=== PATIENT | male | born 1935 | race Caucasian/White ===

== ENCOUNTER 2020-11-07 03:10 | Inpatient (IN) ==
[2020-11-07] MEDS ORDERED: ONDANSETRON 4 MG/2 ML VIAL IV STA (03:35)
[2020-11-07] MEDS ORDERED: HYDROmorphone 2 MG/1 ML VIAL IV STA (03:35)
[2020-11-07] MEDS ORDERED: DILTIAZEM 50 MG/10 ML VIAL IV STA (03:35)
[2020-11-07] MEDS ORDERED: SODIUM CHLORIDE 0.9% 500 ML IV STA (03:35)
[2020-11-07] MEDS: DILTIAZEM INJ 100 MG in SODIUM CHLORIDE 0.9% 100 ML IV SCH (04:05)
[2020-11-07 04:47] LABS: Basophils % 0.3 % (0.0-0.8); Eosinophils # 0.1 10*3/uL (0.0-0.87); Eosinophils % 0.6 % (0.00-10.9); Hematocrit 31.4 VOL% (42.0-52.0); Hemoglobin 10.4 GM/DL (14.0-18.0); Immature Granulocytes % 0.6 %; Immature Granulocytes Absolute 0.08 #; Lymphocytes # 0.8 10*3/uL (1.4-4.0); Lymphocytes % 5.7 % (21.2-54.2); Mean Corpuscular HGB Conc 33.1 GM/DL (32-36); Mean Corpuscular Volume 94.9 FL (87-102); Mean Platelet Volume 10.2 FL (9.6-12.0); Monocytes % 6.6 % (1.7-12.7); Neutrophils % 86.2 % (38.7-73.9); Platelet Count 252 T/CUMM (130-400); Red Blood Count 3.31 MC/CUMM (3.8-5.5); Red Cell Distribution Width 14.8 % (9.3-17.3)
[2020-11-07 04:54] LABS: PT Patient Result 11.5 SECS (10.5-12.0)
[2020-11-07 05:26] LABS: Alanine Aminotransferase 17 U/L (16-61); Albumin 3.8 G/DL (3.4-5.0); Alkaline Phosphatase 178 U/L (45-117); Aspartate Amino Transferase 24 U/L (0-37); Blood Urea Nitrogen 16 MG/DL (7-18); Calcium 9.3 MG/DL (8.5-10.1); Carbon Dioxide 25 MMOL/L (21-32); Estimated Glom Filtration Rate 84 ML/MIN; Glucose 138 MG/DL (74-106); Osmolality,Calculated 268.4 MOS/KG (273-304); Potassium 3.7 MMOL/L (3.5-5.1); Sodium 133 MMOL/L (136-145); Total Protein 6.6 G/DL (6.4-8.2)
[2020-11-07] MEDS ORDERED: GLUCAGON 1 MG VIAL IM PRN (05:34)
[2020-11-07] MEDS ORDERED: DEXTROSE 50% 25 GM/50 ML VIAL IV PRN (05:34)
[2020-11-07] MEDS ORDERED: MORPHINE 2 MG/1 ML SYRINGE IV PRN ×3 (05:34→12:12)
[2020-11-07] MEDS ORDERED: ONDANSETRON 4 MG/2 ML VIAL IV PRN (05:34)
[2020-11-07] MEDS ORDERED: SODIUM CHLORIDE 0.9% 1,000 ML IV SCH (06:00)
[2020-11-07 07:29] LABS: Bilirubin,Urine Negative (Negative); Blood, Urine Negative (Negative); Glucose,Urine (UA) Negative (Negative); Hyaline Casts,Urine 1 /LPF (0-3); Ketones,Urine 5 mg/dL (Negative); Mucus,Urine Occasional /LPF (Occasional); Nitrite,Urine Negative (Negative); Protein,Urine 30 MG/DL; RBC,Urine 2 /HPF (0-4); Urine Appearance CLEAR (Clear); Urine Color Yellow (Yellow)
[2020-11-07] MEDS ORDERED: ceFAZolin 2,000 MG/50 ML DUPLEX IV ONE (08:00)
[2020-11-07] MEDS: METOPROLOL TARTRATE 25 MG TABLET PO SCH ×2 (08:49→20:40)
[2020-11-07] MEDS: ENOXAPARIN 40 MG/0.4 ML SYRINGE SUBCUT SCH (08:50)
[2020-11-07] MEDS ORDERED: fentaNYL 100 MCG/2 ML VIAL ONE (10:08)
[2020-11-07] MEDS ORDERED: BUPIVACAINE MPF 0.25% 30 ML VIAL ONE (10:08)
[2020-11-07] MEDS ORDERED: DEXAMETHASONE 4 MG/1 ML VIAL ONE (10:08)
[2020-11-07] MEDS ORDERED: BACITRACIN OINT 0.9 GM PACK TOP ONE (10:18)
[2020-11-07] MEDS ORDERED: SEVOFLURANE 1 UNIT/15 MINUTE INH ONE ×5 (10:19→11:54)
[2020-11-07] MEDS ORDERED: LIDOCAINE 2% 5 ML VIAL ONE (10:19)
[2020-11-07] MEDS ORDERED: propofoL 200 MG/20 ML VIAL IV ONE (10:19)
[2020-11-07] MEDS ORDERED: LACTATED RINGERS 1,000 ML IV SCH (11:00)
[2020-11-07] MEDS ORDERED: DILTIAZEM 50 MG/10 ML VIAL IV ONE (11:02)
[2020-11-07] MEDS ORDERED: ACETAMINOPHEN INJ 1,000 MG/100 ML VIAL IV ONE (11:53)
[2020-11-07] MEDS ORDERED: PHENYLEPHRINE 1 MG/10 ML SYRINGE IV ONE (11:53)
[2020-11-07] MEDS ORDERED: MAGNESIUM HYDROXIDE SUSP 30 ML UDCUP PO PRN (12:12)
[2020-11-07] MEDS: LACTATED RINGERS 1,000 ML IV SCH (14:12)
[2020-11-07] MEDS: DIGOXIN 0.125 MG TABLET PO SCH (14:12)
[2020-11-07] MEDS: DOCUSATE SODIUM 100 MG CAPSULE PO SCH (20:40)
[2020-11-08] MEDS: LACTATED RINGERS 1,000 ML IV SCH (01:04)
[2020-11-08] MEDS: DILTIAZEM INJ 100 MG in SODIUM CHLORIDE 0.9% 100 ML IV SCH (04:47)
[2020-11-08 07:11] LABS: Basophils % 0.3 % (0.0-0.8); Hematocrit 23.9 VOL% (42.0-52.0); Hemoglobin 7.9 GM/DL (14.0-18.0); Immature Granulocytes % 0.4 %; Immature Granulocytes Absolute 0.03 #; Lymphocytes # 0.9 10*3/uL (1.4-4.0); Lymphocytes % 11.3 % (21.2-54.2); Mean Corpuscular HGB Conc 33.1 GM/DL (32-36); Mean Corpuscular Volume 94.5 FL (87-102); Mean Platelet Volume 10.2 FL (9.6-12.0); Monocytes % 9.9 % (1.7-12.7); Neutrophils % 78.1 % (38.7-73.9); Platelet Count 190 T/CUMM (130-400); Red Blood Count 2.53 MC/CUMM (3.8-5.5); Red Cell Distribution Width 14.8 % (9.3-17.3); White Blood Count 7.6 T/CUMM (4-12)
[2020-11-08] MEDS ORDERED: SODIUM CHLORIDE 0.9% 1,000 ML IV PRN (07:15)
[2020-11-08] MEDS ORDERED: FUROSEMIDE 40 MG/4 ML VIAL IV PRN (07:15)
[2020-11-08 07:33] LABS: Calcium 8.5 MG/DL (8.5-10.1); Osmolality,Calculated 271.1 MOS/KG (273-304); Potassium 4.5 MMOL/L (3.5-5.1)
[2020-11-08] MEDS: METOPROLOL TARTRATE 25 MG TABLET PO SCH ×2 (08:02→20:32)
[2020-11-08] MEDS: DOCUSATE SODIUM 100 MG CAPSULE PO SCH ×2 (08:02→20:32)
[2020-11-08] MEDS: ENOXAPARIN 40 MG/0.4 ML SYRINGE SUBCUT SCH (08:03)
[2020-11-08] MEDS: DIGOXIN 0.125 MG TABLET PO SCH (12:42)
[2020-11-08] MEDS ORDERED: TUBERCULIN SKIN TEST 0.1 ML SYRINGE INTRADERM ONE (13:31)
[2020-11-08 16:13] LABS: Hematocrit 29.8 VOL% (42.0-52.0); Hemoglobin 9.7 GM/DL (14.0-18.0)
[2020-11-09] MEDS: DILTIAZEM INJ 100 MG in SODIUM CHLORIDE 0.9% 100 ML IV SCH (04:04)
[2020-11-09 05:23] LABS: Basophils % 0.3 % (0.0-0.8); Eosinophils # 0.1 10*3/uL (0.0-0.87); Eosinophils % 0.8 % (0.00-10.9); Hemoglobin 9.5 GM/DL (14.0-18.0); Immature Granulocytes % 0.5 %; Immature Granulocytes Absolute 0.03 #; Lymphocytes # 1.3 10*3/uL (1.4-4.0); Mean Corpuscular HGB Conc 31.7 GM/DL (32-36); Mean Corpuscular Volume 95.5 FL (87-102); Mean Platelet Volume 9.9 FL (9.6-12.0); Monocytes % 13.5 % (1.7-12.7); Neutrophils % 64.9 % (38.7-73.9); Platelet Count 178 T/CUMM (130-400); Red Blood Count 3.14 MC/CUMM (3.8-5.5); White Blood Count 6.6 T/CUMM (4-12)
[2020-11-09 05:46] LABS: Calcium 8.8 MG/DL (8.5-10.1); Osmolality,Calculated 275.7 MOS/KG (273-304); Potassium 4.3 MMOL/L (3.5-5.1)
[2020-11-09] MEDS: PANTOPRAZOLE 40 MG TABLET PO SCH (09:26)
[2020-11-09] MEDS: DOCUSATE SODIUM 100 MG CAPSULE PO SCH ×2 (09:26→20:53)
[2020-11-09] MEDS: ASPIRIN EC 81 MG TABLET PO SCH (09:26)
[2020-11-09] MEDS: METOPROLOL TARTRATE 25 MG TABLET PO SCH ×2 (09:26→20:53)
[2020-11-09] MEDS: ENOXAPARIN 40 MG/0.4 ML SYRINGE SUBCUT SCH (09:27)
[2020-11-09] MEDS: DIGOXIN 0.125 MG TABLET PO SCH (13:28)
[2020-11-09] MEDS: LUBIPROSTONE 8 MCG CAPSULE PO SCH (20:53)
[2020-11-09] MEDS: ALVIMOPAN 12 MG CAPSULE PO SCH (20:53)
[2020-11-10 06:05] LABS: Basophils # 0.1 10*3/uL (0.0-0.2); Basophils % 0.8 % (0.0-0.8); Eosinophils # 0.5 10*3/uL (0.0-0.87); Eosinophils % 7.9 % (0.00-10.9); Hemoglobin 9.3 GM/DL (14.0-18.0); Immature Granulocytes % 0.6 %; Immature Granulocytes Absolute 0.04 #; Lymphocytes # 1.4 10*3/uL (1.4-4.0); Lymphocytes % 21.6 % (21.2-54.2); Mean Corpuscular HGB Conc 32.1 GM/DL (32-36); Mean Corpuscular Volume 94.8 FL (87-102); Mean Platelet Volume 9.9 FL (9.6-12.0); Neutrophils % 57.1 % (38.7-73.9); Platelet Count 201 T/CUMM (130-400); Red Blood Count 3.06 MC/CUMM (3.8-5.5); Red Cell Distribution Width 14.9 % (9.3-17.3); White Blood Count 6.3 T/CUMM (4-12)
[2020-11-10 06:28] LABS: Calcium 8.4 MG/DL (8.5-10.1); Osmolality,Calculated 273.8 MOS/KG (273-304); Potassium 3.9 MMOL/L (3.5-5.1)
[2020-11-10] MEDS: LINACLOTIDE 145 MCG CAPSULE PO SCH (08:57)
[2020-11-10] MEDS: LUBIPROSTONE 8 MCG CAPSULE PO SCH ×2 (08:58→21:13)
[2020-11-10] MEDS: ALVIMOPAN 12 MG CAPSULE PO SCH ×2 (08:58→21:15)
[2020-11-10] MEDS: DOCUSATE SODIUM 100 MG CAPSULE PO SCH ×2 (08:58→21:13)
[2020-11-10] MEDS: ASPIRIN EC 81 MG TABLET PO SCH (08:58)
[2020-11-10] MEDS: METOPROLOL TARTRATE 25 MG TABLET PO SCH ×2 (08:59→21:13)
[2020-11-10] MEDS: ENOXAPARIN 40 MG/0.4 ML SYRINGE SUBCUT SCH (09:00)
[2020-11-10] MEDS: PANTOPRAZOLE 40 MG TABLET PO SCH (09:01)
[2020-11-10] MEDS: DIGOXIN 0.125 MG TABLET PO SCH (13:17)
[2020-11-10] MEDS: LACTULOSE 20 GM/30 ML UDCUP PO SCH (21:18)
[2020-11-11 05:22] LABS: Basophils # 0.1 10*3/uL (0.0-0.2); Eosinophils # 0.9 10*3/uL (0.0-0.87); Eosinophils % 14.2 % (0.00-10.9); Hematocrit 29.9 VOL% (42.0-52.0); Hemoglobin 9.7 GM/DL (14.0-18.0); Immature Granulocytes % 0.8 %; Immature Granulocytes Absolute 0.05 #; Lymphocytes # 1.2 10*3/uL (1.4-4.0); Lymphocytes % 18.7 % (21.2-54.2); Mean Corpuscular HGB Conc 32.4 GM/DL (32-36); Mean Corpuscular Volume 95.8 FL (87-102); Mean Platelet Volume 10.9 FL (9.6-12.0); Monocytes % 11.5 % (1.7-12.7); Neutrophils % 53.8 % (38.7-73.9); Platelet Count 182 T/CUMM (130-400); Red Blood Count 3.12 MC/CUMM (3.8-5.5); Red Cell Distribution Width 14.9 % (9.3-17.3); White Blood Count 6.3 T/CUMM (4-12)
[2020-11-11 06:08] LABS: Calcium 8.7 MG/DL (8.5-10.1); Osmolality,Calculated 267.2 MOS/KG (273-304); Potassium 4.3 MMOL/L (3.5-5.1)
[2020-11-11 06:11] LABS: Eosinophils 17 % (0-10); Lymphocytes 21 % (20-55); Platelet Estimate Normal; Segmented Neutrophils 51 % (50-85); Total Cells Counted 100
[2020-11-11] MEDS: LACTULOSE 20 GM/30 ML UDCUP PO SCH ×2 (08:40→20:37)
[2020-11-11] MEDS: LINACLOTIDE 145 MCG CAPSULE PO SCH (08:40)
[2020-11-11] MEDS: LUBIPROSTONE 8 MCG CAPSULE PO SCH ×2 (08:40→20:42)
[2020-11-11] MEDS: ALVIMOPAN 12 MG CAPSULE PO SCH ×2 (08:41→20:37)
[2020-11-11] MEDS: ASPIRIN EC 81 MG TABLET PO SCH (08:41)
[2020-11-11] MEDS: DOCUSATE SODIUM 100 MG CAPSULE PO SCH ×2 (08:41→20:37)
[2020-11-11] MEDS: METOPROLOL TARTRATE 25 MG TABLET PO SCH ×2 (08:42→20:42)
[2020-11-11] MEDS: PANTOPRAZOLE 40 MG TABLET PO SCH (08:42)
[2020-11-11] MEDS: ENOXAPARIN 40 MG/0.4 ML SYRINGE SUBCUT SCH (08:42)
[2020-11-11] MEDS: DIGOXIN 0.125 MG TABLET PO SCH (13:38)
[2020-11-12 05:32] LABS: Basophils % 0.5 % (0.0-0.8); Eosinophils # 1.4 10*3/uL (0.0-0.87); Eosinophils % 19.3 % (0.00-10.9); Hematocrit 29.9 VOL% (42.0-52.0); Hemoglobin 9.4 GM/DL (14.0-18.0); Immature Granulocytes % 0.9 %; Immature Granulocytes Absolute 0.07 #; Lymphocytes # 1.3 10*3/uL (1.4-4.0); Lymphocytes % 16.8 % (21.2-54.2); Mean Corpuscular HGB Conc 31.4 GM/DL (32-36); Mean Corpuscular Volume 95.8 FL (87-102); Mean Platelet Volume 9.5 FL (9.6-12.0); Monocytes % 10.6 % (1.7-12.7); Neutrophils % 51.9 % (38.7-73.9); Platelet Count 285 T/CUMM (130-400); Red Blood Count 3.12 MC/CUMM (3.8-5.5); Red Cell Distribution Width 14.9 % (9.3-17.3); White Blood Count 7.5 T/CUMM (4-12)
[2020-11-12 05:55] LABS: Eosinophils 16 % (0-10); Hypochromasia Slight; Lymphocytes 21 % (20-55); Microcytosis 1+; Polychromasia Slight; Segmented Neutrophils 53 % (50-85); Total Cells Counted 100
[2020-11-12 05:56] LABS: Platelet Estimate Normal
[2020-11-12 06:08] LABS: Calcium 8.9 MG/DL (8.5-10.1); Osmolality,Calculated 272.8 MOS/KG (273-304); Potassium 4.3 MMOL/L (3.5-5.1)
[2020-11-12] MEDS: LINACLOTIDE 145 MCG CAPSULE PO SCH (08:54)
[2020-11-12] MEDS: ASPIRIN EC 81 MG TABLET PO SCH (08:55)
[2020-11-12] MEDS: ENOXAPARIN 40 MG/0.4 ML SYRINGE SUBCUT SCH (08:55)
[2020-11-12] MEDS: PANTOPRAZOLE 40 MG TABLET PO SCH (08:55)
[2020-11-12] MEDS: DOCUSATE SODIUM 100 MG CAPSULE PO SCH (08:56)
[2020-11-12] MEDS: LACTULOSE 20 GM/30 ML UDCUP PO SCH (08:56)
[2020-11-12] MEDS: LUBIPROSTONE 8 MCG CAPSULE PO SCH (08:56)
[2020-11-12] MEDS: ALVIMOPAN 12 MG CAPSULE PO SCH (08:57)
[2020-11-12] MEDS: METOPROLOL TARTRATE 25 MG TABLET PO SCH ×2 (08:57→09:52)
[2020-11-12 10:52] VITALS: BP 131/70
== END 2020-11-12 12:05 | disposition swing bed (61) | DRG 481 ==
LOC: SUATTDRO → N.ED 03:10 → N.EDINP 05:34 → SUATTDRO 05:34 → N.3E 09:35
PROVIDERS: ADMIT Internal Medicine Geriatric Medicine; ATTEND Hospitalist